=== PATIENT | male | born 1985 ===

== ENCOUNTER 2019-07-10 05:43 | Day surgery (SDC) | payer OTHER ==
[2019-07-10] VITALS (11 sets, daily range): BP systolic 133–185; BP diastolic 86–116
[~2019-07-10] VITALS: Ht 185.4 cm; Wt 89.8 kg
[2019-07-10] MEDS ORDERED: HYDROcodone/Acetamin 10/325 tab ORAL PRN (06:15)
[2019-07-10] MEDS ORDERED: Morphine Sulfate 4mg/ml Inj (IV USE ONLY) IM PRN (06:15)
[2019-07-10] MEDS ORDERED: Hydromorphone 0.5mg/0.5ml inj IVP PRN ×2 (06:15→06:45)
[2019-07-10] MEDS ORDERED: NKM (06:32)
[2019-07-10] MEDS ORDERED: LR 1000ml 1,000 ML IVLG SCH (06:33)
--- NOTE | 2019-07-10 06:37 | Anethesia Preoperative Eval ---
Anesthesia Pre-op PMH/ROS General Date of Evaluation: Jul 10, 2019 Time of Evaluation: 07:21 Anesthesiologist: Cari ASA Score: ASA 2 Mallampati Score Class I : Soft palate, uvula, fauces, pillars visible Class II: Soft palate, uvula, fauces visible Class III: Soft palate, base of uvula visible Class IV: Only hard plate visible Mallampati Classification: Class II Surgeon: Audie Diagnosis: Neck Pain Surgical Procedure: ACDF C5-6 Anesthesia History: none Family History: no anesthesia problems Allergies: Coded Allergies: No Known Allergies (Unverified , 07/09/19) Medications: see eMAR Patient NPO?: Yes NPO Date: Jul 09, 2019 NPO Time: 2200 Past Medical History Cardiovascular: Reports: HTN Anesthesia Pre-op Phys. Exam Physician Exam Last Vital Signs Date Time Temp Pulse Resp B/P (MAP) Pulse Ox O2 Delivery O2 Flow Rate FiO2 07/10/19 06:24 97.3 58 18 133/86 (102) 98 Constitutional: NAD Neurologic: CN 2-12 intact Cardiovascular: RRR Respiratory: CTA Gastrointestinal: S/NT/ND Airway Exam Mallampati Score: Class II MO: full ROM: limited Teeth: intact Anesthesia Pre-op A/P Risk Assessment & Plan Assessment: ASA 2 Plan: GA, SED, GlideScope Go Status Change Before Surgery: No Pre-Antibiotics Dru grams Ancef IV Given Within 1 Hr of Incision: Yes Time Given: 07:46 Wilian Alcala MD Jul 10, 2019 06:37
[2019-07-10] MEDS ORDERED: Rocuronium Bromide 50mg/5ml Inj IV ONE ×2 (06:39→08:08)
[2019-07-10] MEDS ORDERED: Meperidine 50mg/ml Inj(FOR RIGORS ONLY) IVP PRN (06:45)
[2019-07-10] MEDS ORDERED: fentaNYL 100 mcg/2 mL IV PRN (06:45)
[2019-07-10] MEDS ORDERED: Midazolam 2mg/2ml Inj IVP PRN (06:45)
[2019-07-10] MEDS ORDERED: oxyCODONE HCL/Acetaminophen 5/325mg ORAL PRN (06:45)
[2019-07-10] MEDS ORDERED: Acetaminophen (Non formulary) 100 ML IV ONE (06:45)
[2019-07-10] MEDS ORDERED: Labetalol 5mg/ml 20ml vial IV PRN (06:45)
[2019-07-10] MEDS ORDERED: HYDROcodone/Acetamin 7.5/325 tab ORAL PRN (06:45)
[2019-07-10] MEDS ORDERED: Ketorolac 30mg Inj IV PRN ×2 (06:45)
[2019-07-10] MEDS ORDERED: LORazepam Inj 2mg/ml 1ml IV PRN (06:45)
[2019-07-10] MEDS ORDERED: DiphenhydrAMINE 50mg/ml Inj IVP PRN (06:45)
[2019-07-10] MEDS ORDERED: HYDROcodone/Acetamin 5/325 tab ORAL PRN (06:45)
[2019-07-10] MEDS ORDERED: Atropine Sulfate 0.4mg/ml inj IVP PRN (06:45)
[2019-07-10] MEDS ORDERED: Thrombin 5000 units TOPIC ONE (06:46)
[2019-07-10] MEDS ORDERED: Gelfoam Size TOPIC ONE (06:46)
[2019-07-10] MEDS ORDERED: Bacitracin 50000 Units Vial ONE ×2 (06:46→13:27)
[2019-07-10] MEDS ORDERED: Dexamethasone 20mg/5ml IVP ONE (07:00)
[2019-07-10] MEDS ORDERED: ceFAZolin sod 1 GM in NS 55 ML IVPB ONE (07:00)
[2019-07-10] MEDS ORDERED: Lidocaine 1% MPF 10mg/ml 5ml ONE (07:02)
[2019-07-10] MEDS ORDERED: Sodium Chloride 10ml vial INJ ONE (07:02)
[2019-07-10] MEDS ORDERED: Dexamethasone 4mg/ml vial ONE (07:02)
[2019-07-10] MEDS ORDERED: fentaNYL 100 mcg/2 mL IV ONE ×3 (07:03→08:37)
[2019-07-10] MEDS ORDERED: Lidocaine 1% Plain 30 ml INJ ONE ×2 (07:09→09:08)
--- NOTE | 2019-07-10 07:19 | Immediate Post-Op Evaluation ---
Immediate Post-Op Evalulation Immediate Post-Op Evalulation Procedure: ACDF C5-6 Date of Evaluation: Jul 10, 2019 Time of Evaluation: 10:12 IV Fluids: 700 LR Blood Products: 0 Estimated Blood Loss: 25 Urinary Output: 0 Blood Pressure Systolic: 151 Blood Pressure Diastolic: 94 Pulse Rate: 84 Respiratory Rate: 16 O2 Sat by Pulse Oximetry: 96 Temperature (Fahrenheit): 96.7 Pain Score (1-10): 2 Nausea: No Vomiting: No Complications 0 Patient Status: awake, reacts, patent, extubated, none Hydration Status: adequate Dru Grams Ancef IV Given Within 1 Hr of Incision: Yes Time Given: 07:46 Wilian Alcala MD Jul 10, 2019 07:19
--- NOTE | 2019-07-10 07:26 | Pre-Procedure Note/Attestation ---
Pre-Procedure Note/Attestation Complete Prior to Procedure Planned Procedure: not applicable Procedure Narrative: C5-C6 ACDF anterior plate Indications for Procedure Pre-Operative Diagnosis: Radiculopathy, pain Attestation I attest that I discussed the nature of the procedure; its benefits; risks and complications; and alternatives (and the risks and benefits of such alternatives ), prior to the procedure, with the patient (or the patient's legal surgical device sales representative). I attest that, if there was a reasonable possibility of needing a blood transfusion, the patient (or the patient's legal surgical device sales representative) was given the [facility] standardized written summary, pursuant to the [place] Blood Safety Act ([place] Health and Safety Code # 1645, as amended). I attest that I re-evaluated the patient just prior to the surgery and that there has been no change in the patient's H&P, except as documented below: Larry Bronson MD Jul 10, 2019 07:26
[2019-07-10] MEDS ORDERED: Neostigmine 1mg/ml 10ml Inj ONE (07:30)
[2019-07-10] MEDS ORDERED: Propofol 1,000mg/ 100ml btl IV ONE (07:30)
[2019-07-10] MEDS ORDERED: Sterile Water Irrig 1000ml IRRIG ONE (07:30)
[2019-07-10] MEDS ORDERED: LR 1000ml ONE (07:30)
[2019-07-10] MEDS ORDERED: NS Irrig 1000ml ONE (07:30)
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
[2019-07-10] MEDS ORDERED: Glycopyrrolate 0.2mg/ml 1ml Vial ONE (09:19)
--- NOTE | 2019-07-10 09:31 | Brief Operative Note ---
Immediate Post Operative Note Operative Note Pre-op Diagnosis: Radiculopathy, pain Procedure: C5-C6 ACDF anterior plate Post-op Diagnosis: same as pre-op Findings: consistent w/pre-op dx studies Surgeon: Audie Ph.D., M.D. Product Scientist: Shaye SAPP Anesthesiologist: Cari MARKHAM Anesthesia: general Specimen: yes Complications: none Condition: stable Fluids: anesthesia Estimated Blood Loss: minimal Drains: none Implant(s) used?: Yes Larry Bronson MD Jul 10, 2019 09:31
[2019-07-10] MEDS ORDERED: Naloxone 0.4mg/ml Inj IVP PRN (09:45)
--- NOTE | 2019-07-10 09:57 | 48 Hour Post Anesthesia Eval ---
Post Anesthesia Evaluation Procedure: ACDF C5-6 Date of Evaluation: Jul 10, 2019 Time of Evaluation: 12:34 Blood Pressure Systolic: 147 0: 78 Pulse Rate: 82 Respiratory Rate: 18 Temperature (Fahrenheit): 98 O2 Sat by Pulse Oximetry: 99 Airway: patent Nausea: No Vomiting: No Pain Intensity: 2 Hydration Status: adequate Cardiopulmonary Status: Stable Mental Status/LOC: patient returned to baseline Follow-up Care/Observations: 0 Post-Anesthesia Complications: 0 Follow-up care needed: ready to discharge Wilian Alcala MD Jul 10, 2019 09:57
[2019-07-10] MEDS ORDERED: Chloraseptic Spray 20mL Bottle ORAL PRN (12:31)
[2019-07-10] MEDS ORDERED: D5 1/2NS 1,000 ML IV SCH (12:32)
--- NOTE | 2019-07-10 15:15 | Operative Note - Dictated ---
DATE OF OPERATION: 07/10/2019 ADMITTING/PREOPERATIVE DIAGNOSIS: C5-C6 disk protrusion with radiculopathy. POSTOPERATIVE DIAGNOSIS: C5-C6 disk protrusion with radiculopathy. OPERATIVE PROCEDURE: 1. Anterior cervical diskectomy with fusion, C5-C6. 2. Placement of osteopromotive material. 3. Placement of interbody reconstructive titanium graft. 4. Anterior internal plate fixation, C5-C6. 5. Intraoperative fluoroscopy. 6. SSEP monitoring. SURGEON: Larry Bronson M.D. BELT POLISHER: SENAIT Solano. ANESTHESIOLOGIST: Wilian Alcala M.D. ANESTHESIA: General with intubation. ESTIMATED BLOOD LOSS: Minimal. COMPLICATIONS: None. POSTOPERATIVE CONDITION: Good/stable. SPECIMEN: Disk fragment C5-C6 to Pathology. DESCRIPTION OF PROCEDURE: The patient was brought to the operating room and in the supine position, general anesthesia with intubation was induced. IV antibiotics and IV Decadron were administered 30 minutes prior to incision time. User Acceptance Tester fluoroscopy images, markers were undertaken to determine the correct level for incision placement. With sterile marking pen, incision level was marked accordingly on the anterior/left aspect of the cervical spine. Markers were removed. Anterior neck was sterilely prepped and draped free in usual sterile fashion. A left 36 mm incision, transverse was placed appropriately through dermis and epidermis. Electrocautery dissection was carried through the subcutaneous tissue to the level of the platysmas muscle. It was identified, isolated and transected in line with the incision. Blunt dissection was carried medial to the left sternocleidomastoid muscle and carotid sheath through the deep cervical and pretracheal fascia to the midline between the right and left longus colli muscles. Spine needle bent at 90 degree angles to avoid penetration greater than 3 mm in the disk space was placed under direct observation sterilely into the disk space. A cross-table image was obtained and confirmed by surgeon at C5-C6. Interval was marked. Needle removed. Retractors placed deep to the longus colli muscles were elevated not exceeding 3 mm in the mediolateral extents. Anterior osteophyte was removed under high-power magnification with Midas Brennen bur dissection. Diskectomy to the posterior longitudinal ligament. End-plates denuded of cartilaginous end caps to bleeding subchondral bone. Subchondral bone integrity maintained. Appropriate trials utilized determining the correct interval. Titanium 7 degree lordotic implant was packed with osteopromotive material in combination of local autograft. Tamped into position. Cross-table imaging obtained demonstrating correct alignment and positioning. A 10 pounds of traction on the neck was removed. Anterior internal plate fixation in a compressive fashion was undertaken with 16 mm screws confirmed to be the appropriate depth. Locked into position. Fixation excellent. Wound irrigated with antibiotic-containing saline. AP and lateral images obtained and stored. Exploration of the wound revealed no obvious excoriation or laceration of vital structures. FloSeal applied after copious irrigation. Reapproximation with Vicryl suture material of the platysmas muscle. Dermis and epidermis reapproximated subcuticular closure followed with surgical strips and sterile bandage maintained in place with tape. The patient was awakened, extubated in the operating room, and transported to postop recovery in good and stable condition. Larry Bronson M.D. DR: JOSE ANGEL JOB#: [id number] CC:
[2019-07-10] MEDS ORDERED: ceFAZolin sod 1 GM in D5W 55 ML IV SCH (15:30)
[2019-07-10] MEDS ORDERED: Dronabinol 2.5mg Cap ORAL SCH (22:00)
--- NOTE | 2019-07-11 10:19 | Diagnostic Imaging Report ---
INDICATION: Pain, intraoperative TECHNIQUE: Intraoperative imaging Fluoroscopy time: 10.5 seconds Total dose: 0.80913 mGym2 Total number of images: 4 COMPARISON: None FINDINGS: Millimeters [employer] demonstrates localizer tool projecting at the level of the C5-6 disc. Subsequent images document placement of anterior fusion hardware and a disc spacer at C5-6 IMPRESSION: Intraoperative imaging, as described
--- NOTE | 2019-07-11 10:19 | Diagnostic Imaging Report ---
INDICATION: Pain, intraoperative TECHNIQUE: Intraoperative imaging Fluoroscopy time: 10.5 seconds Total dose: 0.78425 mGym2 Total number of images: 4 COMPARISON: None FINDINGS: [employer] demonstrates localizer tool projecting at the level of the C5-6 disc. Subsequent images document placement of anterior fusion hardware and a disc spacer at C5-6 IMPRESSION: Intraoperative imaging, as described
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
== END 2019-07-10 15:28 | disposition home or self-care (01) ==
LOC: SUR 05:43 → 3E 12:27
DX: M50.122 Cervical disc disorder at C5-C6 level with radiculopathy (principal); Z87.891 Personal history of nicotine dependence; I10 Essential (primary) hypertension
CPT/HCPCS: 22554; 36415; 72040; 76000; 86850; 86900; 86901; 87081; 97116; 97161; 97530; C1713; G0378; J0690; J1100; J2001; J2250; J2310; J2405; J2704; J2710; J3010; J7120; 94003; 94150